=== PATIENT | male | born 1965 | race Hispanic/Latino ===

== ENCOUNTER 2016-09-07 11:32 | Outpatient (CLI) | payer BC ==
[2016-09-07 11:45] LABS: Basophils % (Auto) 1.4 % (0.0-1.8); Hematocrit 29.3 % (35.5-45.6); Hemoglobin 10.3 gm/dl (11.8-15.2); Mean Corpuscular HGB Conc 35 % (32-34); Mean Corpuscular Hemoglobin 33 pg (28-32); Mean Corpuscular Volume 94 fl (84-94); Platelet Count 211 K/mm3 (140-440); Red Blood Count 3.13 M/mm3 (3.65-5.03); Red Cell Distribution Width 14.4 % (13.2-15.2); White Blood Count 5.6 K/mm3 (4.5-11.0)
[2016-09-07 12:08] LABS: Alanine Aminotransferase 14 units/L (7-56); Albumin 3.7 g/dL (3.9-5); Albumin/Globulin Ratio 1.2 %; Alkaline Phosphatase 60 units/L (35-129); Anion Gap 20 mmol/L; BUN/Creatinine Ratio 10.62; Bilirubin,Total 0.4 mg/dL (0.1-1.2); Blood Urea Nitrogen 17 mg/dL (9-20); Carbon Dioxide 17 mmol/L (22-30); Chloride 109.6 mmol/L (98-107); Glucose 125 mg/dL (75-100); Phosphorous 4.1 mg/dL (2.5-4.5); Sodium 144 mmol/L (137-145); Total Protein 6.9 g/dL (6.3-8.2)
[2016-09-07 13:50] LABS: Bilirubin,Direct < 0.2 mg/dL (0-0.2)
[2016-09-07 13:51] LABS: Bilirubin,Indirect 0.2 mg/dL; Calcium 12.2 mg/dL (8.4-10.2); Potassium 2.4 mmol/L (3.6-5.0)
== END 2016-09-07 11:33 | disposition home or self-care (01) ==
LOC: LABHHL 11:32
DX: B45.1 Cerebral cryptococcosis (principal)
CPT/HCPCS: 36415; 80053; 80074; 84100; 85025